=== PATIENT | male | born 1970 | race African-American/Black ===

== ENCOUNTER 2018-06-17 11:02 | Emergency (ER) | payer OTHER ==
[~2018-06-17] VITALS: Ht 177.8 cm; Wt 89.8 kg
[2018-06-17 11:14] VITALS: Ht 177.8 cm; Wt 89.8 kg
[2018-06-17 13:32] VITALS: BP 98/52
== END 2018-06-17 13:32 | disposition home or self-care (01) ==
LOC: ED 11:02
DX: G62.9 Polyneuropathy, unspecified (principal); I10 Essential (primary) hypertension; Z76.0 Encounter for issue of repeat prescription